=== PATIENT | female | born 1960 | race Caucasian/White ===

== ENCOUNTER 2018-08-25 21:59 | Inpatient (IN) | payer SELFPAY ==
[~2018-08-25] VITALS: Ht 172.7 cm; Wt 67.1 kg
--- NOTE | 2018-08-25 22:31 | PHYS DOC ---
Adult General Chief Complaint Chief Complaint: UPPER EXTREMITY SWELLING HPI HPI Patient is a 57 year old F who presents for swelling of her left foot and right hand. She states that this swelling and redness began on Sunday. She states that prior to the redness and swelling, she cut her right hand on the Sunday prior. She denies any fevers. She reports that both areas are a 10/10 in severity. Along with the hand and foot pain she also complains on right hip pain. She denies swelling or redness in this area, but states it also began on Sunday. Review of Systems Review of Systems Constitutional: Denies fever or chills [] Eyes: Denies change in visual acuity, redness, or eye pain [] HENT: Denies nasal congestion or sore throat [] Respiratory: Denies cough or shortness of breath [] Cardiovascular: No additional information not addressed in HPI [] GI: Denies abdominal pain, nausea, vomiting, bloody stools or diarrhea [] : Denies dysuria or hematuria [] Musculoskeletal: Reports back pain or joint pain [] Integument: Reports swelling and redness on the right hand and left foot [] All other systems were reviewed and found to be within normal limits, except as documented in this note. Current Medications Current Medications Current Medications Medications (Trade) Dose Ordered Sig/Hailey Start Time Stop Time Status Last Admin Dose Admin Ceftriaxone Sodium (Rocephin) 1 gm 1X ONCE 08/25/18 23:30 08/25/18 23:31 DC 08/25/18 23:16 1 GM Fentanyl Citrate (Fentanyl 2ml Vial) 100 mcg STK-MED ONCE 08/25/18 22:50 08/25/18 22:51 DC Insulin Human Regular (HumuLIN R VIAL) 5 unit 1X ONCE 08/25/18 23:30 08/25/18 23:31 DC 08/25/18 23:17 5 UNIT Morphine Sulfate (Morphine Sulfate) 4 mg PRN Q2HR PRN 08/25/18 23:15 08/26/18 23:14 08/25/18 23:32 4 MG Potassium Chloride (KCl Oral Soln) 40 meq 1X ONCE 08/25/18 23:30 08/25/18 23:31 DC 08/25/18 23:16 40 MEQ Sodium Chloride 1,000 ml @ 1,000 mls/hr 1X ONCE 08/26/18 00:00 5/13/19 00:59 Vancomycin HCl (Vanco Per Pharmacy) 1 each PRN DAILY PRN 08/25/18 23:15 Vancomycin HCl 1.5 gm/Sodium Chloride 500 ml @ 250 mls/hr 1X ONCE 08/25/18 23:45 08/26/18 01:44 08/25/18 23:27 250 MLS/HR Allergies Allergies Allergies Coded Allergies Type Severity Reaction Last Updated Verified sulfamethoxazole Allergy Intermediate 08/25/18 Yes trimethoprim Allergy Intermediate 08/25/18 Yes Physical Exam Physical Exam Constitutional: Well developed, well nourished, no acute distress, non-toxic ap pearance. [] HENT: Normocephalic, atraumatic, bilateral external ears normal, oropharynx dry, no oral exudates, nose normal. [] Eyes: PERRLA, EOMI, conjunctiva normal, no discharge. [] Neck: Normal range of motion, no tenderness, supple, no stridor. [] Cardiovascular:Heart rate regular rhythm, no murmur [] Lungs & Thorax: Bilateral breath sounds clear to auscultation [] Abdomen: Bowel sounds normal, soft, no tenderness, no masses, no pulsatile masses. [] Skin: Redness and swelling of the right hand and left foot. Right hand total partially 4 x 6 cm mostly on the dorsum from the mid hand to the mid forearm there is streaking noted. Tenderness seems mostly in the subcutaneous tissues does not appear isolated to the wrist joint itself appears diffuse There are healing scabs on the dorsum of the forearm Much smaller more mild area of erythema on the anterior portion of the ankle Extremities: Passive ROM in the involved joints results in only minimal pain. Range of motion the hip is fairly intact without significant pain Neurologic: Alert and oriented X 3, normal motor function, normal sensory function, no focal deficits noted. [] Psychologic: Affect normal, judgement normal, mood normal. [] Current Patient Data Vital Signs Vital Signs Date Time Temp Pulse Resp B/P (MAP) Pulse Ox O2 Delivery O2 Flow Rate FiO2 08/25/18 22:14 97.5 104 18 166/84 (111) 100 Room Air 97.5 Lab Values Laboratory Tests Test 08/25/18 22:15 White Blood Count 17.7 x10^3/uL (4.0-11.0) H Red Blood Count 4.42 x10^6/uL (3.50-5.40) Hemoglobin 13.1 g/dL (12.0-15.5) Hematocrit 40.1 % (36.0-47.0) Mean Corpuscular Volume 91 fL (79-100) Mean Corpuscular Hemoglobin 30 pg (25-35) Mean Corpuscular Hemoglobin Concent 33 g/dL (31-37) Red Cell Distribution Width 13.7 % (11.5-14.5) Platelet Count 327 x10^3/uL (140-400) Neutrophils (%) (Auto) 84 % (31-73) H Lymphocytes (%) (Auto) 10 % (24-48) L Monocytes (%) (Auto) 6 % (0-9) Eosinophils (%) (Auto) 0 % (0-3) Basophils (%) (Auto) 0 % (0-3) Neutrophils # (Auto) 14.8 x10^3uL (1.8-7.7) H Lymphocytes # (Auto) 1.7 x10^3/uL (1.0-4.8) Monocytes # (Auto) 1.1 x10^3/uL (0.0-1.1) Eosinophils # (Auto) 0.0 x10^3/uL (0.0-0.7) Basophils # (Auto) 0.1 x10^3/uL (0.0-0.2) Segmented Neutrophils % 89 % (35-66) H Lymphocytes % 8 % (24-48) L Monocytes % 3 % (0-10) Platelet Estimate Adequate (ADEQUATE) Sodium Level 129 mmol/L (136-145) L Potassium Level 3.4 mmol/L (3.5-5.1) L Chloride Level 92 mmol/L (98-107) L Carbon Dioxide Level 23 mmol/L (21-32) Anion Gap 14 (6-14) Blood Urea Nitrogen 34 mg/dL (7-20) H Creatinine 1.5 mg/dL (0.6-1.0) H Estimated GFR (Cockcroft-Gault) 35.9 BUN/Creatinine Ratio 23 (6-20) H Glucose Level 515 mg/dL (70-99) *H Lactic Acid Level 3.8 mmol/L (0.4-2.0) H Calcium Level 9.1 mg/dL (8.5-10.1) Total Bilirubin 0.5 mg/dL (0.2-1.0) Aspartate Amino Transferase (AST) 19 U/L (15-37) Alanine Aminotransferase (ALT) 23 U/L (14-59) Alkaline Phosphatase 158 U/L (46-116) H Total Protein 8.6 g/dL (6.4-8.2) H Albumin 3.1 g/dL (3.4-5.0) L Albumin/Globulin Ratio 0.6 (1.0-1.7) L Laboratory Tests 08/25/18 22:15 Laboratory Tests 08/25/18 22:15 EKG EKG [] Radiology/Procedures Radiology/Procedures [] Course & Med Decision Making Course & Med Decision Making Pertinent Labs and Imaging studies reviewed. (See chart for details) []57-year-old female presenting with cellulitis she reported no medical history however blood sugars 5:15 probably has untreated diabetes Lactic acid 3.8 leukocytosis of 17,000. I suspect cellulitis leading to these abnormalities warrants admission and ceftriaxone Vanco given in the emergency room IV fluids repeat lactate was ordered blood pressure stable at this point in the emergency room. Admitted to the service of Dr. Motley. I consider the possibility of septic joint of the right wrist however I think this is much less likely based on the clinical picture with lymphangitic spread as well as clinical signs cellulitis at this point time IV antibiotics and observation as i feel cellulitis is the likely diagnosis.blood cultures done in er as well. cellulitis diffuse across palm and forearm. Dragon Disclaimer Dragon Disclaimer This electronic medical record was generated, in whole or in part, using a voice recognition dictation system. Departure Departure Impression: Primary Impression: Cellulitis Disposition: 09 ADMITTED INPATIENT Admitting Physician: Dick Torre Condition: STABLE Referrals: NON,STAFF (PCP) BREANA BYRNE MD August 25, 2018 22:31
[2018-08-25 22:36] LABS: BASO # 0.1 x10^3/uL (0.0-0.2); BASO % 0 % (0-3); EOS % 0 % (0-3); HEMATOCRIT 40.1 % (36.0-47.0); HEMOGLOBIN 13.1 g/dL (12.0-15.5); LYMPH # 1.7 x10^3/uL (1.0-4.8); LYMPH % 10 % (24-48); MEAN CORPUSCULAR HEMOGLOBIN 30 pg (25-35); MEAN CORPUSCULAR HGB CONC 33 g/dL (31-37); MEAN CORPUSCULAR VOLUME 91 fL (79-100); MONO # 1.1 x10^3/uL (0.0-1.1); MONO % 6 % (0-9); NEUT # 14.8 x10^3uL (1.8-7.7); NEUT % 84 % (31-73); PLATELET COUNT 327 x10^3/uL (140-400); RED BLOOD COUNT 4.42 x10^6/uL (3.50-5.40); RED CELL DISTRIBUTION WIDTH 13.7 % (11.5-14.5); WHITE BLOOD COUNT 17.7 x10^3/uL (4.0-11.0)
[2018-08-25] MEDS ORDERED: fentaNYL PF VIAL 100 MCG/2 ML VIAL ONE (22:50)
[2018-08-25 22:56] LABS: ALBUMIN 3.1 g/dL (3.4-5.0); ALBUMIN/GLOBULIN RATIO 0.6 (1.0-1.7); CALCIUM 9.1 mg/dL (8.5-10.1); CREATININE 1.5 mg/dL (0.6-1.0); GFR 35.9; POTASSIUM 3.4 mmol/L (3.5-5.1); TOTAL BILIRUBIN 0.5 mg/dL (0.2-1.0); TOTAL PROTEIN 8.6 g/dL (6.4-8.2)
[2018-08-25] MEDS ORDERED: fentaNYL PF VIAL 100 MCG/2 ML VIAL IV ONE (23:00)
[2018-08-25] MEDS ORDERED: INSULIN REGULAR 100 UNIT/ML 3ML VIAL. IV ONE (23:30)
[2018-08-25] MEDS ORDERED: cefTRIAXone IV Push 1 GM VIAL. IVP ONE (23:30)
[2018-08-25] MEDS ORDERED: IV NORMAL SALINE 1000ML BAG 1,000 ML IV ONE (23:30)
[2018-08-25] MEDS ORDERED: POTASSIUM CHLORIDE 20 MEQ/15 ML ORAL LIQUID. PO ONE (23:30)
[2018-08-25] MEDS: MORPHINE SULFATE 4 MG/ML VIAL. IV PRN (23:32)
[2018-08-25 23:37] LABS: % LYMPHS 8 % (24-48); % MONOS 3 % (0-10); % SEGS 89 % (35-66); PLT ESTIMATE ADEQUATE (ADEQUATE)
[2018-08-25] MEDS ORDERED: VANCOMYCIN 1.5 GM in IV NORMAL SALINE 500ML BAG 500 ML IV ONE (23:45)
[2018-08-26] MEDS ORDERED: IV NORMAL SALINE 1000ML BAG 1,000 ML IV ONE
[2018-08-26 01:00] VITALS: BP 159/83
--- NOTE | 2018-08-26 01:00 | NUR ---
ADMISSION NOTE Pt admitted to room 412 via ER cart. Pt is A/Ox4, having pain to right hand, right hip and left ankle. Pt noted to have swollen, red, tender right hand, multiple scabs on bilateral lower legs, 2 scabs on right forearm, left forehead. Pt states she doesn't know where any of the scabs have come from except on her right forearm where she had cut her arm working on a car. States she tried steri strips and "Nuskin" without helping, then her hand became painful and swollen, so she came to the ER. Assessment and history completed. Pt given call light and explained use, pt VU. Instructed not to get OOB without help, pt VU. Will monitor.
[2018-08-26] MEDS: MORPHINE SULFATE 4 MG/ML VIAL. IV PRN ×6 (01:28→21:06)
[2018-08-26] MEDS: IV NORMAL SALINE 1000ML BAG 1,000 ML IV SCH ×3 (01:31→17:41)
[2018-08-26] MEDS ORDERED: MELA3TAB2 PO (02:45)
[2018-08-26 02:47] LABS: BASO % 0 % (0-3); EOS % 0 % (0-3); HEMATOCRIT 35.9 % (36.0-47.0); HEMOGLOBIN 11.8 g/dL (12.0-15.5); LYMPH # 2.1 x10^3/uL (1.0-4.8); LYMPH % 12 % (24-48); MEAN CORPUSCULAR HEMOGLOBIN 30 pg (25-35); MEAN CORPUSCULAR HGB CONC 33 g/dL (31-37); MEAN CORPUSCULAR VOLUME 91 fL (79-100); MONO # 1.6 x10^3/uL (0.0-1.1); MONO % 10 % (0-9); NEUT # 12.8 x10^3uL (1.8-7.7); NEUT % 77 % (31-73); PLATELET COUNT 213 x10^3/uL (140-400); RED BLOOD COUNT 3.95 x10^6/uL (3.50-5.40); WHITE BLOOD COUNT 16.5 x10^3/uL (4.0-11.0)
[2018-08-26] MEDS: VANCOMYCIN PER PHARMACY MC PRN (03:02)
--- NOTE | 2018-08-26 03:03 | NUR ---
Pharmacy Vancomycin Dosing Note S:Consulted to monitor and dose vancomycin started 08/25/18. O:CHANTE DC is a 57 year old F with Cellulitis . Height: 5 feet, 8 inches Weight: 67.856788 kg [place] Body Weight: 63.90 Adjusted Body Weight: 65.14 Dosing Weight: Actual Other Antibiotics: LABS: Last BUN: 34 Last Creatinine: 1.5 Creatinine Clearance: 43 mL/min Last WBC: 17.7 Last Procalcitonin: Tmax (past 24 hours): Microbiology: I/O: Drug Levels: Last level: on at Last dose given 08/25/18 at 2230 Vancomycin Dosing: Loading Dose: 1500 mg x1 Dosing Weight: Actual Target Trough: 10-20 A: Based on: WT AND CRCL P: 1. Begin Vancomycin 1000 mg IV q24h 2. Follow up Trough level on 08/27/18 at 2230 3. Pharmacy will continue to monitor, follow and adjust therapy as needed. SHIV DUPREE RPH, 08/26/18302 Signed: 08/26/18 at 0303 by SHIV DUPREE RPH PHA
[2018-08-26 07:00] VITALS: BP 135/75
--- NOTE | 2018-08-26 08:26 | PDOC1 ---
History and Physical Date of Admission Date of Admission DATE: 08/26/18 TIME: 08:21 Identification/Chief Complaint Chief Complaint Hand pain Source Source: Patient History of Present Illness History of Present Illness 57 year old F who presents for swelling of her left foot and right hand. She states that this swelling and redness began on Sunday. She states that prior to the redness and swelling, she cut her right hand on the Sunday prior. She denies any fevers. She reports that both areas are a 10/10 in severity. Along with the hand and foot pain she also complains on right hip pain. She denies swelling or redness in this area, but states it also began on Sunday. She states she has lost 120 pounds over the past year, unintentionally, and has not needed her diabetic medications due to this. States she has been hospitalized for similar at [facility] and this is where she usually gets her care, states she has already had "doctors look into this, and haven't found anything." And she declines further workup. A further complaint is oral ulcer and skin ulcers and recent removal of all her teeth and poorly fitting dentures Past Medical History Cardiovascular: HTN Pulmonary: No pertinent hx GI: No pertinent hx Heme/Onc: No pertinent hx Hepatobiliary: No pertinent hx Psych: No pertinent hx Rheumatologic: No pertinent hx Infectious disease: No pertinent hx ENT: No pertinent hx Renal/: No pertinent hx Endocrine: Diabetes Dermatology: Rash Past Surgical History Past Surgical History: No pertinent history Family History Family History: Diabetes, Hypertension Social History Smoke: 1 pack per day ALCOHOL: none Drugs: None Current Medications Current Medications Current Medications Fentanyl Citrate (Fentanyl 2ml Vial) 50 mcg 1X ONCE IV Last administered on 08/25/18at 22:53; Start 08/25/18 at 23:00; Stop 08/25/18 at 23:01; Status DC Fentanyl Citrate (Fentanyl 2ml Vial) 100 mcg STK-MED ONCE .ROUTE ; Start 08/25/18 at 22:50; Stop 08/25/18 at 22:51; Status DC Morphine Sulfate (Morphine Sulfate) 4 mg PRN Q2HR PRN IV SEVERE PAIN Last administered on 08/26/18at 06:34; Start 08/25/18 at 23:15; Stop 08/26/18 at 23:14 Sodium Chloride 1,000 ml @ 100 mls/hr Q10H IV Last administered on 08/26/18 01:31; Start 08/25/18 at 23:30; Stop 08/26/18 at 23:29 Ceftriaxone Sodium (Rocephin) 1 gm 1X ONCE IVP Last administered on 08/25/18at 23:16; Start 08/25/18 at 23:30; Stop 08/25/18 at 23:31; Status DC Vancomycin HCl (Vanco Per Pharmacy) 1 each PRN DAILY PRN MC SEE COMMENTS Last administered on 08/26/18at 03:02; Start 08/25/18 at 23:15 Sodium Chloride 1,000 ml @ 1,000 mls/hr 1X ONCE IV Last administered on 08/25/18at 23:16; Start 08/25/18 at 23:30; Stop 08/26/18 at 00:29; Status DC Potassium Chloride (KCl Oral Soln) 40 meq 1X ONCE PO Last administered on 08/25/18at 23:16; Start 08/25/18 at 23:30; Stop 08/25/18 at 23:31; Status DC Insulin Human Regular (HumuLIN R VIAL) 5 unit 1X ONCE IV Last administered on 08/25/18 23:17; Start 08/25/18 at 23:30; Stop 08/25/18 at 23:31; Status DC Vancomycin HCl 1.5 gm/Sodium Chloride 500 ml @ 250 mls/hr 1X ONCE IV Last administered on 08/25/18at 23:27; Start 08/25/18 at 23:45; Stop 08/26/18 at 01:44; Status DC Sodium Chloride 1,000 ml @ 1,000 mls/hr 1X ONCE IV Last administered on 08/26/18at 00:22; Start 08/26/18 at 00:00; Stop 08/26/18 at 00:59; Status DC Vancomycin HCl 1 gm/Sodium Chloride 250 ml @ 250 mls/hr Q24H IV ; Start 08/26/18 at 23:00 Vancomycin HCl (Vancomycin Trough Level) 1 each 1X ONCE MC ; Start 08/27/18 at 22:30; Stop 08/27/18 at 22:31 Active Scripts Active Reported Melatonin 3 Mg Tablet 1 Tab PO QHS Allergies Allergies: Coded Allergies: sulfamethoxazole (Verified Allergy, Intermediate, 08/25/18) trimethoprim (Verified Allergy, Intermediate, 08/25/18) I S O L A T I O N *CONTACT* (Verified Allergy, Unknown, 08/26/18) mrsa ROS General: YES: Fatigue, Malaise, Appetite, Other (Weight loss); No: Chills, Night Sweats PSYCHOLOGICAL ROS: YES: Anxiety; No: Behavioral Disorder, Concentration difficultie, Decreased libido, Depression, Disorientation, Hallucinations, Hostility, Irritablity, Memory d ifficulties, Mood Swings, Obsessive thoughts, Physical abuse, Sexual abuse, Sleep disturbances, Suicidal ideation, Other Eyes: No Blurry vision, No Decreased vision, No Double vision, No Dry eyes, No Excessive tearing, No Eye Pain, No Itchy Eyes, No Loss of vision, No Photophobia, No Scotomata, No Uses contacts, No Uses glasses, No Other HEENT: No: Heacaches, Visual Changes, Hearing change, Nasal congestion, Nasal discharge, Oral lesions, Sinus pain, Sore Throat, Epistaxis, Sneezing, Snoring, Tinnitus, Vertigo, Vocal changes, Other ALLERGY AND IMMUNOLOGY: No: Hives, Insect Bite Sensitivity, Itchy/Watery Eyes, Nasal Congestion, Post Nasal Drip, Seasonal Allergies, Other Hematological and Lymphatic: No: Bleeding Problems, Blood Clots, Blood Transfusions, Brusing, Night Sweats, Pallor, Swollen Lymph Nodes, Other ENDOCRINE: No: Breast Changes, Galactorrhea, Hair Pattern Changes, Hot Flashes, Malaise/lethargy, Mood Swings, Palpitations, Polydipsia/polyuria, Skin Changes, Temperature Intolerance, Unexpected Weight Changes, Other Breast: No New/Changing Breast Lumps, No Nipple changes, No Nipple discharge, No Other Respiratory: No: Cough, Hemoptysis, Orthopnea, Pleuritic Pain, Shortness of breath, SOB with excertion, Sputum Changes, Stridor, Tachypnea, Wheezing, Other Cardiovascular: No Chest Pain, No Palpitations, No Orthopnea, No Paroxysmal No c. Dyspnea, No Edema, No Lt Headedness, No Other Gastrointestinal: Yes Nausea; No Vomiting, No Abdominal Pain, No Diarrhea, No Constipation, No Melena, No Hematochezia, No Other Genitourinary: No Dysuria, No Frequency, No Incontinence, No Hematuria, No Retention, No Discharge, No Urgency, No Pain, No Flank Pain, No Other, No , No , No , No , No , No , No Musculoskeletal: No Gait Disturbance, No Joint Pain, No Joint Stiffness, No Joint Swelling, No Muscle Pain, No Muscular Weakness, No Pain In:, No Swelling In:, No Other Neurological: No Behavorial Changes, No Bowel/Bladder ControlChng, No Confusion, No Dizziness, No Gait Disturbance, No Headaches, No Impaired Coord/balance, No Memory Loss, No Numbness/Tingling, No Seizures, No Speech Problems, No Tremors, No Visual Changes, No Weakness, No Other Skin: Yes Skin Lesion Changes; No Dry Skin, No Eczema, No Hair Changes, No Lumps, No Mole Changes, No Mottling, No Nail Changes, No Pruritus, No Rash, No Other, No Acne Physical Exam General: Alert, Oriented X3, Cooperative, No acute distress HEENT: Atraumatic, PERRLA, EOMI, Mucous membr. moist/pink Lungs: Clear to auscultation, Normal air movement Heart: S1S2, RRR, no gallops, no murmurs Abdomen: Normal bowel sounds, Soft, No tenderness, No hepatosplenomegaly, No masses Extremities: No clubbing, No cyanosis, No edema, Normal pulses, No tenderness/swelling Skin: Other (Multiple lesions) Neuro: Normal gait, Normal speech, Strength at 5/5 X4 ext, Normal tone, Sensation intact, Cranial nerves 3-12 NL, Reflexes 2+ Psych/Mental Status: Mental status NL, Mood NL Vitals Vitals Vital Signs Date Time Temp Pulse Resp B/P (MAP) Pulse Ox O2 Delivery O2 Flow Rate FiO2 08/26/18 07:39 Room Air 08/26/18 07:04 20 08/26/18 07:00 99.2 90 135/75 (95) 95 99.2 Labs Labs Laboratory Tests Test 08/25/18 22:15 08/26/18 00:27 08/26/18 02:30 08/26/18 07:21 White Blood Count 17.7 x10^3/uL (4.0-11.0) 16.5 x10^3/uL (4.0-11.0) Red Blood Count 4.42 x10^6/uL (3.50-5.40) 3.95 x10^6/uL (3.50-5.40) Hemoglobin 13.1 g/dL (12.0-15.5) 11.8 g/dL (12.0-15.5) Hematocrit 40.1 % (36.0-47.0) 35.9 % (36.0-47.0) Mean Corpuscular Volume 91 fL (79-100) 91 fL (79-100) Mean Corpuscular Hemoglobin 30 pg (25-35) 30 pg (25-35) Mean Corpuscular Hemoglobin Concent 33 g/dL (31-37) 33 g/dL (31-37) Red Cell Distribution Width 13.7 % (11.5-14.5) 14.0 % (11.5-14.5) Platelet Count 327 x10^3/uL (140-400) 213 x10^3/uL (140-400) Neutrophils (%) (Auto) 84 % (31-73) 77 % (31-73) Lymphocytes (%) (Auto) 10 % (24-48) 12 % (24-48) Monocytes (%) (Auto) 6 % (0-9) 10 % (0-9) Eosinophils (%) (Auto) 0 % (0-3) 0 % (0-3) Basophils (%) (Auto) 0 % (0-3) 0 % (0-3) Neutrophils # (Auto) 14.8 x10^3uL (1.8-7.7) 12.8 x10^3uL (1.8-7.7) Lymphocytes # (Auto) 1.7 x10^3/uL (1.0-4.8) 2.1 x10^3/uL (1.0-4.8) Monocytes # (Auto) 1.1 x10^3/uL (0.0-1.1) 1.6 x10^3/uL (0.0-1.1) Eosinophils # (Auto) 0.0 x10^3/uL (0.0-0.7) 0.0 x10^3/uL (0.0-0.7) Basophils # (Auto) 0.1 x10^3/uL (0.0-0.2) 0.0 x10^3/uL (0.0-0.2) Segmented Neutrophils % 89 % (35-66) Lymphocytes % 8 % (24-48) Monocytes % 3 % (0-10) Platelet Estimate Adequate (ADEQUATE) Sodium Level 129 mmol/L (136-145) Potassium Level 3.4 mmol/L (3.5-5.1) Chloride Level 92 mmol/L (98-107) Carbon Dioxide Level 23 mmol/L (21-32) Anion Gap 14 (6-14) Blood Urea Nitrogen 34 mg/dL (7-20) Creatinine 1.5 mg/dL (0.6-1.0) Estimated GFR (Cockcroft-Gault) 35.9 BUN/Creatinine Ratio 23 (6-20) Glucose Level 515 mg/dL (70-99) Lactic Acid Level 3.8 mmol/L (0.4-2.0) 2.2 mmol/L (0.4-2.0) Calcium Level 9.1 mg/dL (8.5-10.1) Total Bilirubin 0.5 mg/dL (0.2-1.0) Aspartate Amino Transf (AST/SGOT) 19 U/L (15-37) Alanine Aminotransferase (ALT/SGPT) 23 U/L (14-59) Alkaline Phosphatase 158 U/L (46-116) Total Protein 8.6 g/dL (6.4-8.2) Albumin 3.1 g/dL (3.4-5.0) Albumin/Globulin Ratio 0.6 (1.0-1.7) Glucose (Fingerstick) 331 mg/dL (70-99) 266 mg/dL (70-99) Laboratory Tests Test 08/25/18 22:15 08/26/18 00:27 08/26/18 02:30 08/26/18 07:21 White Blood Count 17.7 x10^3/uL (4.0-11.0) 16.5 x10^3/uL (4.0-11.0) Red Blood Count 4.42 x10^6/uL (3.50-5.40) 3.95 x10^6/uL (3.50-5.40) Hemoglobin 13.1 g/dL (12.0-15.5) 11.8 g/dL (12.0-15.5) Hematocrit 40.1 % (36.0-47.0) 35.9 % (36.0-47.0) Mean Corpuscular Volume 91 fL (79-100) 91 fL (79-100) Mean Corpuscular Hemoglobin 30 pg (25-35) 30 pg (25-35) Mean Corpuscular Hemoglobin Concent 33 g/dL (31-37) 33 g/dL (31-37) Red Cell Distribution Width 13.7 % (11.5-14.5) 14.0 % (11.5-14.5) Platelet Count 327 x10^3/uL (140-400) 213 x10^3/uL (140-400) Neutrophils (%) (Auto) 84 % (31-73) 77 % (31-73) Lymphocytes (%) (Auto) 10 % (24-48) 12 % (24-48) Monocytes (%) (Auto) 6 % (0-9) 10 % (0-9) Eosinophils (%) (Auto) 0 % (0-3) 0 % (0-3) Basophils (%) (Auto) 0 % (0-3) 0 % (0-3) Neutrophils # (Auto) 14.8 x10^3uL (1.8-7.7) 12.8 x10^3uL (1.8-7.7) Lymphocytes # (Auto) 1.7 x10^3/uL (1.0-4.8) 2.1 x10^3/uL (1.0-4.8) Monocytes # (Auto) 1.1 x10^3/uL (0.0-1.1) 1.6 x10^3/uL (0.0-1.1) Eosinophils # (Auto) 0.0 x10^3/uL (0.0-0.7) 0.0 x10^3/uL (0.0-0.7) Basophils # (Auto) 0.1 x10^3/uL (0.0-0.2) 0.0 x10^3/uL (0.0-0.2) Segmented Neutrophils % 89 % (35-66) Lymphocytes % 8 % (24-48) Monocytes % 3 % (0-10) Platelet Estimate Adequate (ADEQUATE) Sodium Level 129 mmol/L (136-145) Potassium Level 3.4 mmol/L (3.5-5.1) Chloride Level 92 mmol/L (98-107) Carbon Dioxide Level 23 mmol/L (21-32) Anion Gap 14 (6-14) Blood Urea Nitrogen 34 mg/dL (7-20) Creatinine 1.5 mg/dL (0.6-1.0) Estimated GFR (Cockcroft-Gault) 35.9 BUN/Creatinine Ratio 23 (6-20) Glucose Level 515 mg/dL (70-99) Lactic Acid Level 3.8 mmol/L (0.4-2.0) 2.2 mmol/L (0.4-2.0) Calcium Level 9.1 mg/dL (8.5-10.1) Total Bilirubin 0.5 mg/dL (0.2-1.0) Aspartate Amino Transf (AST/SGOT) 19 U/L (15-37) Alanine Aminotransferase (ALT/SGPT) 23 U/L (14-59) Alkaline Phosphatase 158 U/L (46-116) Total Protein 8.6 g/dL (6.4-8.2) Albumin 3.1 g/dL (3.4-5.0) Albumin/Globulin Ratio 0.6 (1.0-1.7) Glucose (Fingerstick) 331 mg/dL (70-99) 266 mg/dL (70-99) VTE Prophylaxis Ordered VTE Prophylaxis Devices: No VTE Pharmacological Prophylaxi: Yes Assessment/Plan Assessment/Plan A/P: Left foot ulcer - concerning medially for vascular ulcer, especially with head and oral ulcers. Denies any h/o amphetamine use or immunocompromised state Right hand cellulitis - will treat empirically with vancomycin, cephalexin DM2 - check A1c, sliding scale PEDRO - likely vasomotor, will hydrate Hyponatremia - from HHS, glycemic control Lactic acidosis - from sepsis. will cont to treat Sepsis - tachy with leukocytosis and cellulitis as source, given IVF 30cc/kg and lactate trending downward, given empiric antibiotics FEN - ADA diet PPX - heparin FULL CODE Inpatient for cellulitis ROBYN MENDEZ MD August 26, 2018 08:26
[2018-08-26] MEDS ORDERED: DEXTROSE 50% 25 GM / 50ML DISP.SYRIN. IV PRN (08:30)
[2018-08-26] MEDS ORDERED: INSULIN LISPRO 300 UNITS/3 ML INSULN.PEN. SQ ONE (09:00)
--- NOTE | 2018-08-26 09:00 | NUR ---
Wound Care Pt seen for wound care consultation re: a R hand and L ankle cellulitis. Pt's R wrist and hand, and L ankle is red, hot and swollen, no open wounds noted, areas left ETHAN. No other open wounds noted on full skin inspection, but pt has multiple small circular scabs scattered over BLE. WC will sign off at this time, please reconsult if pt develops wounds.
--- NOTE | 2018-08-26 09:47 | NUR ---
IP: Pt adm with cellulitis and open wounds. 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 Pt to be in contact precautions until cultures are verified.
[2018-08-26 11:00] VITALS: BP 131/74
[2018-08-26] MEDS: LACTOBACILLUS RHAMNOSUS GG 1 CAPSULE. PO SCH ×2 (12:06→21:05)
[2018-08-26] MEDS: INSULIN LISPRO 300 UNITS/3 ML INSULN.PEN. SQ SCH ×3 (12:10→21:21)
[2018-08-26] MEDS ORDERED: cefTRIAXone IV Push 1 GM VIAL. IVP SCH (14:00)
[2018-08-26 15:00] VITALS: BP 130/66
[2018-08-26] MEDS: HEPARIN for SUB-Q USE 5,000 UNIT/ML VIAL. SQ SCH ×2 (15:29→22:00)
--- NOTE | 2018-08-26 15:38 | NUR ---
SW following for discharge planning. Discussed with RN, pt is from home with friend. SW to meet with pt to discuss referral of not being able to afford hospital bills. Pt is self pay, SW to give resources. RN advised Dr. Lowe ordered tox screen. SW will continue to follow.
[2018-08-26 16:12] LABS: BILIRUBIN,URINE NEGATIVE (NEG); CLARITY,URINE CLOUDY; COLOR,URINE YELLOW; NITRITE,URINE NEGATIVE (NEG); PROTEIN,URINE 30 mg/dL (NEG-TRACE); UROBILINOGEN,URINE 0.2 mg/dL (0.2 mg/dL)
[2018-08-26 16:18] LABS: AMPHETAMINE/METHAMPHETAMINE NEG (NEG); BARBITURATES NEG (NEG); BENZODIAZEPINES NEG (NEG); CANNABINOIDS NEG (NEG); COCAINE NEG (NEG); METHADONE NEG (NEG); OPIATES POS (NEG); PHENCYCLIDINE NEG (NEG); SQUAMOUS EPITHELIAL CELL,UR FEW /LPF
[2018-08-26 16:19] LABS: WBC,URINE TNTC /HPF (0-4)
[2018-08-26 16:20] LABS: BACTERIA,URINE FEW /HPF (0-FEW)
[2018-08-26 19:00] VITALS: BP 147/84
[2018-08-26] MEDS ORDERED: NON FORMULARY ITEM (Melatonin 1 TAB) PO SCH (21:00)
[2018-08-26] MEDS ORDERED: INSULIN GLARGINE 300 UNITS/3 ML INSULN.PEN. SQ SCH (21:00)
[2018-08-26 23:00] VITALS: BP 134/75
[2018-08-26] MEDS ORDERED: VANCOMYCIN 1 GM in IV NORMAL SALINE 250ML 250 ML IV SCH (23:00)
[2018-08-27] MEDS: HYDROcodone/APAP 5/325MG 1 TAB TABLET PO PRN ×3 (01:13→14:39)
[2018-08-27] MEDS: MORPHINE SULFATE 2 MG/ML VIAL. IV PRN ×3 (01:13→12:22)
[2018-08-27 03:00] VITALS: BP 130/73
[2018-08-27] MEDS: HEPARIN for SUB-Q USE 5,000 UNIT/ML VIAL. SQ SCH ×2 (06:44→14:54)
[2018-08-27 07:00] VITALS: BP 163/83
[2018-08-27] MEDS: LACTOBACILLUS RHAMNOSUS GG 1 CAPSULE. PO SCH (07:58)
[2018-08-27] MEDS: INSULIN LISPRO 300 UNITS/3 ML INSULN.PEN. SQ SCH ×2 (08:07→12:21)
--- NOTE | 2018-08-27 08:15 | PDOC ---
PROGRESS NOTES History of Present Illness History of Present Illness 57 year old F who presents for swelling of her left foot and right hand. She states that this swelling and redness began on Sunday. She states that prior to the redness and swelling, she cut her right hand on the Sunday prior. She denies any fevers. She reports that both areas are a 10/10 in severity. Along with the hand and foot pain she also complains on right hip pain. She denies swelling or redness in this area, but states it also began on Sunday. She states she has lost 120 pounds over the past year, unintentionally, and has not needed her diabetic medications due to this. States she has been hospitalized for similar at [facility] and this is where she usually gets her care, states she has already had "doctors look into this, and haven't found anything." And she declines further workup. A further complaint is oral ulcer and skin ulcers and recent removal of all her teeth and poorly fitting dentures. MRSA nares positive. ASO lower than 200 (70 IU). Vitals Vitals Vital Signs Date Time Temp Pulse Resp B/P (MAP) Pulse Ox O2 Delivery O2 Flow Rate FiO2 08/27/18 07:58 Room Air 08/27/18 03:00 99.4 80 18 130/73 (92) 100 99.4 Physical Exam General: Alert, Oriented X3, Cooperative, No acute distress Abdomen: Normal bowel sounds, Soft, No tenderness, No hepatosplenomegaly, No masses Extremities: No clubbing, No cyanosis, No edema, Normal pulses, No tenderness /swelling Skin: Other (Multiple lesions) Labs LABS Laboratory Tests Test 08/26/18 09:05 08/26/18 10:05 08/26/18 11:38 08/26/18 15:50 Nasal Screen MRSA (PCR) Positive (Negative) Anti-Streptolysin O Antibody 70.1 IU/mL (0.0-200.0) Glucose (Fingerstick) 247 mg/dL (70-99) Urine Collection Type Unknown Urine Color Yellow Urine Clarity Cloudy Urine pH 6.0 Urine Specific [place] 1.020 Urine Protein 30 mg/dL (NEG-TRACE) Urine Glucose (UA) >=1000 mg/dL (NEG) Urine Ketones (Stick) Negative mg/dL (NEG) Urine Blood Trace (NEG) Urine Nitrite Negative (NEG) Urine Bilirubin Negative (NEG) Urine Urobilinogen Dipstick 0.2 mg/dL (0.2 mg/dL) Urine Leukocyte Esterase Large (NEG) Urine RBC 1-2 /HPF (0-2) Urine WBC Tntc /HPF (0-4) Urine Squamous Epithelial Cells Few /LPF Urine Bacteria Few /HPF (0-FEW) Urine Mucus Slight /LPF Urine Opiates Screen Pos (NEG) Urine Methadone Screen Neg (NEG) Urine Barbiturates Neg (NEG) Urine Phencyclidine Screen Neg (NEG) Urine Amphetamine/Methamphetamine Neg (NEG) Urine Benzodiazepines Screen Neg (NEG) Urine Cocaine Screen Neg (NEG) Urine Cannabinoids Screen Neg (NEG) Urine Ethyl Alcohol Neg (NEG) Test 08/26/18 16:39 08/26/18 20:08 Glucose (Fingerstick) 322 mg/dL (70-99) 225 mg/dL (70-99) Comment Review of Relevant I have reviewed the following items palak (where applicable) has been applied. Labs Laboratory Tests Test 08/25/18 22:15 08/26/18 00:27 08/26/18 02:30 08/26/18 07:21 White Blood Count 17.7 x10^3/uL (4.0-11.0) 16.5 x10^3/uL (4.0-11.0) Red Blood Count 4.42 x10^6/uL (3.50-5.40) 3.95 x10^6/uL (3.50-5.40) Hemoglobin 13.1 g/dL (12.0-15.5) 11.8 g/dL (12.0-15.5) Hematocrit 40.1 % (36.0-47.0) 35.9 % (36.0-47.0) Mean Corpuscular Volume 91 fL (79-100) 91 fL (79-100) Mean Corpuscular Hemoglobin 30 pg (25-35) 30 pg (25-35) Mean Corpuscular Hemoglobin Concent 33 g/dL (31-37) 33 g/dL (31-37) Red Cell Distribution Width 13.7 % (11.5-14.5) 14.0 % (11.5-14.5) Platelet Count 327 x10^3/uL (140-400) 213 x10^3/uL (140-400) Neutrophils (%) (Auto) 84 % (31-73) 77 % (31-73) Lymphocytes (%) (Auto) 10 % (24-48) 12 % (24-48) Monocytes (%) (Auto) 6 % (0-9) 10 % (0-9) Eosinophils (%) (Auto) 0 % (0-3) 0 % (0-3) Basophils (%) (Auto) 0 % (0-3) 0 % (0-3) Neutrophils # (Auto) 14.8 x10^3uL (1.8-7.7) 12.8 x10^3uL (1.8-7.7) Lymphocytes # (Auto) 1.7 x10^3/uL (1.0-4.8) 2.1 x10^3/uL (1.0-4.8) Monocytes # (Auto) 1.1 x10^3/uL (0.0-1.1) 1.6 x10^3/uL (0.0-1.1) Eosinophils # (Auto) 0.0 x10^3/uL (0.0-0.7) 0.0 x10^3/uL (0.0-0.7) Basophils # (Auto) 0.1 x10^3/uL (0.0-0.2) 0.0 x10^3/uL (0.0-0.2) Segmented Neutrophils % 89 % (35-66) Lymphocytes % 8 % (24-48) Monocytes % 3 % (0-10) Platelet Estimate Adequate (ADEQUATE) Sodium Level 129 mmol/L (136-145) Potassium Level 3.4 mmol/L (3.5-5.1) Chloride Level 92 mmol/L (98-107) Carbon Dioxide Level 23 mmol/L (21-32) Anion Gap 14 (6-14) Blood Urea Nitrogen 34 mg/dL (7-20) Creatinine 1.5 mg/dL (0.6-1.0) Estimated GFR (Cockcroft-Gault) 35.9 BUN/Creatinine Ratio 23 (6-20) Glucose Level 515 mg/dL (70-99) Lactic Acid Level 3.8 mmol/L (0.4-2.0) 2.2 mmol/L (0.4-2.0) Calcium Level 9.1 mg/dL (8.5-10.1) Total Bilirubin 0.5 mg/dL (0.2-1.0) Aspartate Amino Transf (AST/SGOT) 19 U/L (15-37) Alanine Aminotransferase (ALT/SGPT) 23 U/L (14-59) Alkaline Phosphatase 158 U/L (46-116) Total Protein 8.6 g/dL (6.4-8.2) Albumin 3.1 g/dL (3.4-5.0) Albumin/Globulin Ratio 0.6 (1.0-1.7) Glucose (Fingerstick) 331 mg/dL (70-99) 266 mg/dL (70-99) Test 08/26/18 09:05 08/26/18 10:05 08/26/18 11:38 08/26/18 15:50 Nasal Screen MRSA (PCR) Positive (Negative) Anti-Streptolysin O Antibody 70.1 IU/mL (0.0-200.0) Glucose (Fingerstick) 247 mg/dL (70-99) Urine Collection Type Unknown Urine Color Yellow Urine Clarity Cloudy Urine pH 6.0 Urine Specific [place] 1.020 Urine Protein 30 mg/dL (NEG-TRACE) Urine Glucose (UA) >=1000 mg/dL (NEG) Urine Ketones (Stick) Negative mg/dL (NEG) Urine Blood Trace (NEG) Urine Nitrite Negative (NEG) Urine Bilirubin Negative (NEG) Urine Urobilinogen Dipstick 0.2 mg/dL (0.2 mg/dL) Urine Leukocyte Esterase Large (NEG) Urine RBC 1-2 /HPF (0-2) Urine WBC Tntc /HPF (0-4) Urine Squamous Epithelial Cells Few /LPF Urine Bacteria Few /HPF (0-FEW) Urine Mucus Slight /LPF Urine Opiates Screen Pos (NEG) Urine Methadone Screen Neg (NEG) Urine Barbiturates Neg (NEG) Urine Phencyclidine Screen Neg (NEG) Urine Amphetamine/Methamphetamine Neg (NEG) Urine Benzodiazepines Screen Neg (NEG) Urine Cocaine Screen Neg (NEG) Urine Cannabinoids Screen Neg (NEG) Urine Ethyl Alcohol Neg (NEG) Test 08/26/18 16:39 08/26/18 20:08 Glucose (Fingerstick) 322 mg/dL (70-99) 225 mg/dL (70-99) Laboratory Tests Test 08/26/18 09:05 08/26/18 10:05 08/26/18 11:38 08/26/18 15:50 Nasal Screen MRSA (PCR) Positive (Negative) Anti-Streptolysin O Antibody 70.1 IU/mL (0.0-200.0) Glucose (Fingerstick) 247 mg/dL (70-99) Urine Collection Type Unknown Urine Color Yellow Urine Clarity Cloudy Urine pH 6.0 Urine Specific [place] 1.020 Urine Protein 30 mg/dL (NEG-TRACE) Urine Glucose (UA) >=1000 mg/dL (NEG) Urine Ketones (Stick) Negative mg/dL (NEG) Urine Blood Trace (NEG) Urine Nitrite Negative (NEG) Urine Bilirubin Negative (NEG) Urine Urobilinogen Dipstick 0.2 mg/dL (0.2 mg/dL) Urine Leukocyte Esterase Large (NEG) Urine RBC 1-2 /HPF (0-2) Urine WBC Tntc /HPF (0-4) Urine Squamous Epithelial Cells Few /LPF Urine Bacteria Few /HPF (0-FEW) Urine Mucus Slight /LPF Urine Opiates Screen Pos (NEG) Urine Methadone Screen Neg (NEG) Urine Barbiturates Neg (NEG) Urine Phencyclidine Screen Neg (NEG) Urine Amphetamine/Methamphetamine Neg (NEG) Urine Benzodiazepines Screen Neg (NEG) Urine Cocaine Screen Neg (NEG) Urine Cannabinoids Screen Neg (NEG) Urine Ethyl Alcohol Neg (NEG) Test 08/26/18 16:39 08/26/18 20:08 Glucose (Fingerstick) 322 mg/dL (70-99) 225 mg/dL (70-99) Microbiology 08/25/18 Blood Culture - Preliminary, Resulted NO GROWTH AFTER 1 DAY Medications Current Medications Fentanyl Citrate (Fentanyl 2ml Vial) 50 mcg 1X ONCE IV Last administered on 08/25/18at 22:53; Start 08/25/18 at 23:00; Stop 08/25/18 at 23:01; Status DC Fentanyl Citrate (Fentanyl 2ml Vial) 100 mcg STK-MED ONCE .ROUTE ; Start 08/25/18 at 22:50; Stop 08/25/18 at 22:51; Status DC Morphine Sulfate (Morphine Sulfate) 4 mg PRN Q2HR PRN IV SEVERE PAIN Last administered on 08/26/18at 21:06; Start 08/25/18 at 23:15; Stop 08/26/18 at 2 3:14; Status DC Sodium Chloride 1,000 ml @ 100 mls/hr Q10H IV Last administered on 08/26/18at 17:41; Start 08/25/18 at 23:30; Stop 08/26/18 at 23:29; Status DC Ceftriaxone Sodium (Rocephin) 1 gm 1X ONCE IVP Last administered on 08/25/18at 23:16; Start 08/25/18 at 23:30; Stop 08/25/18 at 23:31; Status DC Vancomycin HCl (Vanco Per Pharmacy) 1 each PRN DAILY PRN MC SEE COMMENTS Last administered on 08/26/18at 03:02; Start 08/25/18 at 23:15 Sodium Chloride 1,000 ml @ 1,000 mls/hr 1X ONCE IV Last administered on 08/25/18at 23:16; Start 08/25/18 at 23:30; Stop 08/26/18 at 00:29; Status DC Potassium Chloride (KCl Oral Soln) 40 meq 1X ONCE PO Last administered on 08/25/18at 23:16; Start 08/25/18 at 23:30; Stop 08/25/18 at 23:31; Status DC Insulin Human Regular (HumuLIN R VIAL) 5 unit 1X ONCE IV Last administered on 08/25/18 23:17; Start 08/25/18 at 23:30; Stop 08/25/18 at 23:31; Status DC Vancomycin HCl 1.5 gm/Sodium Chloride 500 ml @ 250 mls/hr 1X ONCE IV Last administered on 08/25/18at 23:27; Start 08/25/18 at 23:45; Stop 08/26/18 at 01:44; Status DC Sodium Chloride 1,000 ml @ 1,000 mls/hr 1X ONCE IV Last administered on 08/26/18at 00:22; Start 08/26/18 at 00:00; Stop 08/26/18 at 00:59; Status DC Vancomycin HCl 1 gm/Sodium Chloride 250 ml @ 250 mls/hr Q24H IV Last administered on 08/26/18at 23:16; Start 08/26/18 at 23:00 Vancomycin HCl (Vancomycin Trough Level) 1 each 1X ONCE MC ; Start 08/27/18 at 22:30; Stop 08/27/18 at 22:31 Non-Formulary Medication (Melatonin ) 1 tab QHS PO ; Start 08/26/18 at 21:00; Status UNV Insulin Glargine (Lantus) 5 units QHS SQ Last administered on 08/26/18at 21:20; Start 08/26/18 at 21:00 Insulin Human Lispro (HumaLOG) 0-7 UNITS TIDWMEALHC SQ Last administered on 08/27/18 08:07; Start 08/26/18 at 12:00 Dextrose (Dextrose 50%-Water Syringe) 12.5 gm PRN Q15MIN PRN IV SEE COMMENTS; Start 08/26/18 at 08:30 Heparin Sodium (Porcine) (Heparin Sodium) 5,000 unit Q8HRS SQ Last administered on 08/27/18 06:44; Start 08/26/18 at 14:00 Insulin Human Lispro (HumaLOG) 6 units 1X ONCE SQ Last administered on 08/26/18 09:06; Start 08/26/18 at 09:00; Stop 08/26/18 at 09:01; Status DC Lactobacillus Rhamnosus (Culturelle) 1 cap BID PO Last administered on 08/27/18 07:58; Start 08/26/18 at 12:00 Ceftriaxone Sodium (Rocephin) 1 gm Q24H IVP Last administered on 08/26/18 15:26; Start 08/26/18 at 14:00 Morphine Sulfate (Morphine Sulfate) 2 mg PRN Q2HR PRN IV SEVERE PAIN Last administered on 08/27/18 06:38; Start 08/26/18 at 23:30 Acetaminophen/ Hydrocodone Bitart (Lortab 5/325) 1 tab PRN Q6HRS PRN PO MODERATE PAIN Last administered on 08/27/18 07:58; Start 08/26/18 at 23:30 Active Scripts Active Reported Melatonin 3 Mg Tablet 1 Tab PO QHS Vitals/I & O Vital Sign - Last 24 Hours 08/26/18 08/26/18 08/26/18 08/26/18 08:57 11:00 12:06 15:00 Temp 98.6 99.4 98.6 99.4 Pulse 82 90 Resp 18 18 B/P (MAP) 131/74 (93) 130/66 (87) Pulse Ox 92 94 O2 Delivery Room Air Room Air Room Air Room Air 08/26/18 08/26/18 08/26/18 08/26/18 17:33 19:00 19:45 21:06 Temp 100.4 100.4 Pulse 83 Resp 18 B/P (MAP) 147/84 (105) Pulse Ox 94 O2 Delivery Room Air Room Air Room Air Room Air 08/26/18 08/26/18 08/27/18 08/27/18 21:40 23:00 01:13 01:13 Temp 96.4 96.4 Pulse 84 Resp 18 B/P (MAP) 134/75 (94) Pulse Ox 96 O2 Delivery Room Air Room Air Room Air Room Air 08/27/18 08/27/18 08/27/18 08/27/18 02:15 03:00 06:38 07:08 Temp 99.4 99.4 Pulse 80 Resp 18 B/P (MAP) 130/73 (92) Pulse Ox 100 O2 Delivery Room Air Room Air Room Air Room Air 08/27/18 07:58 O2 Delivery Room Air Intake and Output 08/26/18 08/26/18 08/27/18 14:59 22:59 06:59 Intake Total 300 ml 490 ml Balance 300 ml 490 ml ROBYN MENDEZ MD August 27, 2018 08:15
[2018-08-27 11:00] VITALS: BP 158/84
[2018-08-27] MEDS: VANCOMYCIN PER PHARMACY MC PRN (11:09)
[2018-08-27 15:00] VITALS: BP 181/90
[2018-08-27] MEDS ORDERED: CLINDAMYCIN HCL 150 MG CAPSULE. PO SCH (15:00)
[2018-08-27] MEDS ORDERED: DOXYCYCLINE HYCLATE 100 MG TABLET PO SCH (15:00)
--- NOTE | 2018-08-27 15:18 | NUR ---
SW following for discharge planning. Discussed with RN, pt discharging home today with self care. SW met with pt to give self pay resources and discuss referral of not being able to afford medical bills. SW advised pt to contact [facility] when bill is received. Gave [employer] coupon card for discounted prescriptions. No further SW needs.
[2018-08-27] MEDS ORDERED: LACT1CAP19 PO (15:58)
[2018-08-27] MEDS ORDERED: INSU100I13 SQ (15:58)
[2018-08-27] MEDS ORDERED: DOXY100C14 PO (15:58)
[2018-08-27] MEDS ORDERED: HYDR-2761 PO (15:58)
[2018-08-27] MEDS ORDERED: CLIN300C8 PO (15:59)
--- NOTE | 2018-08-27 16:19 | PDOC3 ---
Discharge Summary Visit Information Date of Admission: August 25, 2018 Date of Discharge: August 27, 2018 Admitting Diagnosis: Right hand cellulitis, PEDRO, DM2 Final Diagnosis Right hand cellulitis, PEDRO, DM2 Brief Hospital Course Allergies Allergies Coded Allergies Type Severity Reaction Last Updated Verified sulfamethoxazole Allergy Intermediate 08/25/18 Yes trimethoprim Allergy Intermediate 08/25/18 Yes I S O L A T I O N *CONTACT* Allergy Unknown 08/26/18 Yes Vital Signs Vital Signs Date Time Temp Pulse Resp B/P (MAP) Pulse Ox O2 Delivery O2 Flow Rate FiO2 08/27/18 15:00 98.1 88 16 181/90 (120) 98 Room Air 98.1 Lab Results Laboratory Tests Test 08/25/18 22:15 08/26/18 00:27 08/26/18 02:30 08/26/18 07:21 White Blood Count 17.7 x10^3/uL (4.0-11.0) 16.5 x10^3/uL (4.0-11.0) Red Blood Count 4.42 x10^6/uL (3.50-5.40) 3.95 x10^6/uL (3.50-5.40) Hemoglobin 13.1 g/dL (12.0-15.5) 11.8 g/dL (12.0-15.5) Hematocrit 40.1 % (36.0-47.0) 35.9 % (36.0-47.0) Mean Corpuscular Volume 91 fL (79-100) 91 fL (79-100) Mean Corpuscular Hemoglobin 30 pg (25-35) 30 pg (25-35) Mean Corpuscular Hemoglobin Concent 33 g/dL (31-37) 33 g/dL (31-37) Red Cell Distribution Width 13.7 % (11.5-14.5) 14.0 % (11.5-14.5) Platelet Count 327 x10^3/uL (140-400) 213 x10^3/uL (140-400) Neutrophils (%) (Auto) 84 % (31-73) 77 % (31-73) Lymphocytes (%) (Auto) 10 % (24-48) 12 % (24-48) Monocytes (%) (Auto) 6 % (0-9) 10 % (0-9) Eosinophils (%) (Auto) 0 % (0-3) 0 % (0-3) Basophils (%) (Auto) 0 % (0-3) 0 % (0-3) Neutrophils # (Auto) 14.8 x10^3uL (1.8-7.7) 12.8 x10^3uL (1.8-7.7) Lymphocytes # (Auto) 1.7 x10^3/uL (1.0-4.8) 2.1 x10^3/uL (1.0-4.8) Monocytes # (Auto) 1.1 x10^3/uL (0.0-1.1) 1.6 x10^3/uL (0.0-1.1) Eosinophils # (Auto) 0.0 x10^3/uL (0.0-0.7) 0.0 x10^3/uL (0.0-0.7) Basophils # (Auto) 0.1 x10^3/uL (0.0-0.2) 0.0 x10^3/uL (0.0-0.2) Segmented Neutrophils % 89 % (35-66) Lymphocytes % 8 % (24-48) Monocytes % 3 % (0-10) Platelet Estimate Adequate (ADEQUATE) Sodium Level 129 mmol/L (136-145) Potassium Level 3.4 mmol/L (3.5-5.1) Chloride Level 92 mmol/L (98-107) Carbon Dioxide Level 23 mmol/L (21-32) Anion Gap 14 (6-14) Blood Urea Nitrogen 34 mg/dL (7-20) Creatinine 1.5 mg/dL (0.6-1.0) Estimated GFR (Cockcroft-Gault) 35.9 BUN/Creatinine Ratio 23 (6-20) Glucose Level 515 mg/dL (70-99) Lactic Acid Level 3.8 mmol/L (0.4-2.0) 2.2 mmol/L (0.4-2.0) Calcium Level 9.1 mg/dL (8.5-10.1) Total Bilirubin 0.5 mg/dL (0.2-1.0) Aspartate Amino Transf (AST/SGOT) 19 U/L (15-37) Alanine Aminotransferase (ALT/SGPT) 23 U/L (14-59) Alkaline Phosphatase 158 U/L (46-116) Total Protein 8.6 g/dL (6.4-8.2) Albumin 3.1 g/dL (3.4-5.0) Albumin/Globulin Ratio 0.6 (1.0-1.7) Glucose (Fingerstick) 331 mg/dL (70-99) 266 mg/dL (70-99) Hemoglobin A1c 10.0 % (4.8-5.6) Test 08/26/18 09:05 08/26/18 10:05 08/26/18 11:38 08/26/18 15:50 Nasal Screen MRSA (PCR) Positive (Negative) Anti-Streptolysin O Antibody 70.1 IU/mL (0.0-200.0) Glucose (Fingerstick) 247 mg/dL (70-99) Urine Collection Type Unknown Urine Color Yellow Urine Clarity Cloudy Urine pH 6.0 Urine Specific [place] 1.020 Urine Protein 30 mg/dL (NEG-TRACE) Urine Glucose (UA) >=1000 mg/dL (NEG) Urine Ketones (Stick) Negative mg/dL (NEG) Urine Blood Trace (NEG) Urine Nitrite Negative (NEG) Urine Bilirubin Negative (NEG) Urine Urobilinogen Dipstick 0.2 mg/dL (0.2 mg/dL) Urine Leukocyte Esterase Large (NEG) Urine RBC 1-2 /HPF (0-2) Urine WBC Tntc /HPF (0-4) Urine Squamous Epithelial Cells Few /LPF Urine Bacteria Few /HPF (0-FEW) Urine Mucus Slight /LPF Urine Opiates Screen Pos (NEG) Urine Methadone Screen Neg (NEG) Urine Barbiturates Neg (NEG) Urine Phencyclidine Screen Neg (NEG) Urine Amphetamine/Methamphetamine Neg (NEG) Urine Benzodiazepines Screen Neg (NEG) Urine Cocaine Screen Neg (NEG) Urine Cannabinoids Screen Neg (NEG) Urine Ethyl Alcohol Neg (NEG) Test 08/26/18 16:39 08/26/18 20:08 08/27/18 07:44 08/27/18 11:13 Glucose (Fingerstick) 322 mg/dL (70-99) 225 mg/dL (70-99) 184 mg/dL (70-99) 255 mg/dL (70-99) Laboratory Tests Test 08/26/18 16:39 08/26/18 20:08 08/27/18 07:44 08/27/18 11:13 Glucose (Fingerstick) 322 mg/dL (70-99) 225 mg/dL (70-99) 184 mg/dL (70-99) 255 mg/dL (70-99) Brief Hospital Course Ms Cadet is a 57 yo F who presents for swelling of her left foot and right hand. She states that this swelling and redness began on Sunday. She states that prior to the redness and swelling, she cut her right hand on the Sunday prior. She denies any fevers. She reports that both areas are a 10/10 in severity. Along with the hand and foot pain she also complains on right hip pain. She denies swelling or redness in this area, but states it also began on Sunday. She states she has lost 120 pounds over the past year, unintentionally, and has not needed her diabetic medications due to this. States she has been hospitalized for similar at [facility] and this is where she usually gets her care, states she has already had "doctors look into this, and haven't found anything." And she declines further workup. A further complaint is oral ulcer and skin ulcers and recent removal of all her teeth and poorly fitting dentures. MRSA nares positive. ASO lower than 200 (70 IU). Found with new PEDRO, cr 1.5, glucose > 500 as well. A1c came back at 10. She is concerned she may have lupus. I advised her this is an outpatient w/u as this as she needs better glycemic control and cellulitis treatment. Was initially on rocephin and vancomycin, for cost transitioned to doxy and clindamycin for 10 days with lantus pen and f/u outpatient for diabetic care, she gets most her care at [facility] A/P: Left foot ulcer - concerning medially for vascular ulcer, especially with head and oral ulcers. Denies any h/o amphetamine use or immunocompromised state Right hand cellulitis - will treat empirically with vancomycin, cephalexin DM2 - check A1c, sliding scale PEDRO - likely vasomotor, will hydrate Hyponatremia - from HHS, glycemic control Lactic acidosis - from sepsis. will cont to treat Sepsis - tachy with leukocytosis and cellulitis as source, given IVF 30cc/kg and lactate trending downward, given empiric antibiotics Greater than 30 minutes spent on discharge. Discharge Information Condition at Discharge: Improved Follow Up: Weeks (2) Disposition/Orders: D/C to Home Scheduled Clindamycin Hcl (Clindamycin Hcl) 300 Mg Capsule, 1 CAP PO BID for Cellulitis for 10 Days, #20 Prescribed by: ROBYN MENDEZ MD on 08/27/18 1559 Doxycycline Monohydrate (Doxycycline Monohydrate) 100 Mg Capsule, 1 CAP PO BID for Cellulitis for 10 Days, #20 Prescribed by: ROBYN MENDEZ MD on 08/27/188 Insulin Glargine,Hum.rec.anlog (Lantus Solostar) 100 Unit/1 Ml Insuln.pen, 10 UNITS SQ QHS for DM2 for 30 Days, #1 Ref 5 Dispense #30 BD fine 31g 5mm needles with script, can replace with compatibile pen needle if necessary Prescribed by: ROBYN MENDEZ MD on 08/27/181557 Lactobacillus Rhamnosus Gg (Culturelle) 1 Each Cap.sprink, 1 CAP PO BID for Diarrhea for 10 Days, #20 Prescribed by: ROBYN MENDEZ MD on 08/27/188 Melatonin (Melatonin) 3 Mg Tablet, 1 TAB PO QHS for insomnia, #30 Ref 2 (Reported) Entered as Reported by: SAMANTHA WHITE on 08/26/18244 Last Action: Converted on 08/26/18826 by ROBYN MENDEZ MD Scheduled PRN Hydrocodone Bit/Acetaminophen (Hydrocodone-Apap 5-325 ) 1 Tab Tablet, 1 TAB PO PRN Q6HRS PRN for MODERATE PAIN for 6 Days, #20 Prescribed by: ROBYN MENDEZ MD on 08/27/18 1558 ROBYN MENDEZ MD August 27, 2018 16:19
--- NOTE | 2018-08-27 16:30 | NUR ---
Pt was d/c approximately at 1630. Client was transported via wheelchair to main entrance by [facility]. Pt was A&O x4. Client was given prescriptions and resources for follow up care. Client stated she gets care through [facility] and will "figure it out" with them.
== END 2018-08-27 16:30 | disposition home or self-care (01) | DRG 871 ==
LOC: ER 21:59 → 4 NORTH 23:50
PROVIDERS: ADMIT Internal Medicine; ATTEND Internal Medicine
DX: A41.9 Sepsis, unspecified organism (principal); N17.0 Acute kidney failure with tubular necrosis; L03.113 Cellulitis of right upper limb; E87.1 Hypo-osmolality and hyponatremia; I10 Essential (primary) hypertension; F17.210 Nicotine dependence, cigarettes, uncomplicated; E11.621 Type 2 diabetes mellitus with foot ulcer; L97.529 Non-pressure chronic ulcer of other part of left foot with unspecified severity; Z88.2 Allergy status to sulfonamides; Z83.3 Family history of diabetes mellitus; Z82.49 Family history of ischemic heart disease and other diseases of the circulatory system; Z22.322 Carrier or suspected carrier of Methicillin resistant Staphylococcus aureus
CPT/HCPCS: 36415; 80053; 80307; 81001; 82962; 83036; 83605; 85007; 85025; 86060; 87040; 87086; 87641; 96361; 96365; 96366; 96375; J0696; J1644; J1815; J2270; J3010; J3370; J7030; J7040; J7050; 99285-25